=== PATIENT | female | born 1980 | race Caucasian/White ===

== ENCOUNTER 2023-10-27 08:40 | Outpatient (AMB) | payer MEDICARE, MEDICAID, SELFPAY ==
[2023-10-27 08:43] VITALS: BP 106/68; PULSE 76; O2SAT 99; BMI 30.7
--- NOTE | 2023-10-27 08:43 | A.OFFPC_ITS ---
Vital Signs 10/27/23 08:43 Height 5 ft 0.5 in Weight 160 lb BMI 30.7 BP 106/68 Blood Pressure Location Rt brachial Position Sitting Pulse 76 Pulse Source Pulse Oximeter Pulse Oximetry (%) 99 Oxygen Delivery Method Room Air Intake Visit Reasons: Annual Physical Intake Note: Pt is here today for a PE. Allergies pravastatin Adverse Reaction (Intermediate, Verified 10/27/23 08:50) leg cramps paroxetine [Paxil] Adverse Reaction (Unknown, Verified 10/27/23 08:50) anxiety Medication List - Last Reconciled 10/27/23 by Raysa Stuart MD cholecalciferol (vitamin D3) 25 mcg PO DAILY rosuvastatin 5 mg PO .3 times a week sertraline 200 mg (2 x 100 mg) PO DAILY Tobacco use date assessed: 10/27/23 Dental Screening Dental Screen Date: 10/27/23 Did you have a dental visit in the last 12 months?: Yes Did you have a dental problem in the last 6 months where you did not have access to dental care?: No Was dental information given to patient?: Patient has dentist HPI Annual Physical HPI Details Pt presents for PE. ON LICENSE OF [facility] Medical History Family history of Russo syndrome Hyperlipidemia Depression Autism Vitamin D deficiency Annual physical exam Frequent urination Surgical History Hx of tonsillectomy Family History Father No problems noted. Mother No problems noted. Social History Housing: Apartment Alcohol intake: never Patient Tobacco Use Status: Never used Tobacco e-Cigarette/Vaping Use: Never Used service: No Current occupational status: disabled Cognitive needs: No Hearing needs: No Vision needs: Yes Female Reproductive History Menstrual Age of Menarche: 16 Questionnaire Thrive Questionnaire Date Thrive assessed: 09/06/21 AUDIT C Alcohol Use Questionnaire (AUDIT-C) 1. How often do you have a drink containing alcohol?: Never 3. How often do you have six or more drinks on one occasion?: Never Total Score: 0 ALEX-7 AMB Questionnaire ALEX-7 Date ALEX - 7 assessed: 09/06/21 Source: Developed by Drs. Oscar Walker, Ingrid Mcpherson, Arnold Ramey and colleagues, with an educational hallie from [employer]. Review of Systems Const All systems reviewed & are unremarkable except as noted in HPI and below Reports no additional complaints Eyes Reports no additional complaints ENT Reports no additional complaints Card Reports no additional complaints Resp Reports no additional complaints GI Reports no additional complaints Reports no additional complaints Musc Reports no additional complaints Physical exam (Primary Care) Vital Signs: Last Vital Signs Pulse 76 10/27/23 08:43 BP 106/68 10/27/23 08:43 Pulse Ox 99 10/27/23 08:43 Oxygen Delivery Method Room Air 10/27/23 08:43 BMI result Body Mass Index 30.7 Tobacco/Smoking Status: Tobacco use Status Tobacco use date assessed 10/27/23 10/27/23 08:53 Patient Tobacco Use Status Never used Tobacco 10/27/23 08:53 e-Cigarette/Vaping Use Never Used 10/27/23 08:43 Thrive Assessment: Date of Thrive Assessment Date Thrive assessed 09/06/21 10/27/23 08:43 Const General: no acute distress HENMT Head: Yes normal to inspection Ears: hearing grossly normal bilaterally General nose exam: Normal external nose present Face and sinus: Yes normal facial exam Mouth: Normal oral and palatal mucosa present Throat: Yes posterior oropharynx normal Eyes General: appearance normal, both eyes and all related structures Neck Neck: Yes no lymphadenopathy and Yes supple Resp Effort & Inspection: normal respiratory effort Auscultation: clear to auscultation bilaterally Cardio Rhythm: regular rhythm Heart sounds: S1 normal heart sound present and S2 normal heart sound present GI Inspection: Yes normal to inspection Palpation (GI): Soft to palpation Percussion: Yes normal to percussion Auscultation: normal bowel sounds Assessment and Plan Assessment & Plan (1) Annual physical exam: Code(s): Z00.00 - Encounter for general adult medical examination without abnormal findings Plan: Well-balanced diet regular physical activity discussed with the patient. She is up-to-date with mammogram. Patient refused electro mechanical technician exam and colonoscopy (2) Hyperlipidemia: Code(s): E78.5 - Hyperlipidemia, unspecified Plan: Check Crestor to twice a day week. (3) Vitamin D deficiency: Code(s): E55.9 - Vitamin D deficiency, unspecified Plan: Continue vitamin-D supplement (4) Colonoscopy refused: Comment: 11/02, FIT ordered Code(s): Z53.20 - Procedure and treatment not carried out because of patient's decision for unspecified reasons Orders: Orders AMB Fecal Immunochemical Test Today Z12.11 - Encounter for screening for malignant neoplasm of colon, Z12.12 - Encounter for screening for malignant neoplasm of rectum Lipid Panel 1 Year E55.9 - Vitamin D deficiency, unspecified, E78.5 - Hyperlipidemia, unspecified, Z00.00 - Encounter for general adult medical examination without abnormal findings Comprehensive [place]. Panel Fast 1 Year E55.9 - Vitamin D deficiency, unspecified, E78.5 - Hyperlipidemia, unspecified, Z00.00 - Encounter for general adult medical examination without abnormal findings Complete Blood Count Auto Diff 1 Year E55.9 - Vitamin D deficiency, unspecified, E78.5 - Hyperlipidemia, unspecified, Z00.00 - Encounter for general adult medical examination without abnormal findings TSH reflex Free T4 1 Year E55.9 - Vitamin D deficiency, unspecified, E78.5 - Hyperlipidemia, unspecified, Z00.00 - Encounter for general adult medical examination without abnormal findings Vitamin D 25-OH Total 1 Year E55.9 - Vitamin D deficiency, unspecified, E78.5 - Hyperlipidemia, unspecified, Z00.00 - Encounter for general adult medical examination without abnormal findings Medications: Changed From rosuvastatin 5 mg PO .3 times a week 39 tabs 3RF To rosuvastatin 5 mg PO .2 a week 24 tabs 3RF Coding Level of Care Code Est Pt Prev Care 40-64y(14773) Diagnoses Annual physical exam Z00.00 Hyperlipidemia E78.5 Vitamin D deficiency E55.9 Colonoscopy refused Z53.20
== END 2023-10-27 09:41 | disposition home or self-care (01) ==
PROVIDERS: Visit Provider Internal Medicine
DX: Z00.00 Encounter for general adult medical examination without abnormal findings (principal); E78.5 Hyperlipidemia, unspecified; E55.9 Vitamin D deficiency, unspecified; Z53.20 Procedure and treatment not carried out because of patient's decision for unspecified reasons
CPT/HCPCS: 99396

== ENCOUNTER 2024-07-22 15:01 | Outpatient (REF) | payer MEDICARE, MEDICAID, SELFPAY | END 2024-07-22 15:02 | disposition home or self-care (01) | LOC: HO.US 15:01 | PROVIDERS: PCP Internal Medicine; Visit Provider Internal Medicine | DX: N95.0 Postmenopausal bleeding (principal) | CPT/HCPCS: 76830; 76856 ==

== ENCOUNTER → 2024-07-22 15:03 | Outpatient (BNV) | payer MEDICARE, MEDICAID, SELFPAY | PROVIDERS: PCP Internal Medicine; Visit Provider Radiology Diagnostic Radiology | DX: N95.0 Postmenopausal bleeding (principal) | CPT/HCPCS: 76830; 76856 ==

== ENCOUNTER 2024-07-24 13:45 | Outpatient (AMB) | payer MEDICARE, MEDICAID, SELFPAY ==
[2024-07-24 13:46] VITALS: BP 126/70; PULSE 100; RESP 18; TEMP 36.2; O2SAT 97; BMI 30.3
--- NOTE | 2024-07-24 13:46 | MHC.PC.OV ---
Vital Signs 07/24/24 13:46 Height 5 ft 0.5 in Weight 158 lb BMI 30.3 BP 126/70 Blood Pressure Location Rt brachial Position Sitting Respiration 18 Pulse 100 Pulse Source Pulse Oximeter Temp 97.2 F Temp Source Oral Pulse Oximetry (%) 97 Oxygen Delivery Method Room Air Intake Visit Reasons: Pap Intake Note: Pt is here today for a pap. Allergies pravastatin Adverse Reaction (Intermediate, Verified 07/24/24 13:46) leg cramps paroxetine [Paxil] Adverse Reaction (Unknown, Verified 07/24/24 13:46) anxiety Tobacco use date assessed: 07/24/24 Dental Screening Dental Screen Date: 07/24/24 Did you have a dental visit in the last 12 months?: Yes Did you have a dental problem in the last 6 months where you did not have access to dental care?: No Was dental information given to patient?: Patient has dentist HPI Pap HPI Details Patient presents for a follow-up. She has not had a period for 3 years and started having regular menses every 28 days in the last 3 months. Patient denies abdominal pain nausea vomiting excessive bleeding or spotting between. She has never been sexually active and never had Pap smear. Transabdominal Pelvic ultrasound showed normal uterus, normal endometrium, ovaries were not visualized. Patient did not tolerate transvaginal pelvic ultrasound. Patient has been taking sertraline for chronic anxiety and rosuvastatin for hyperlipidemia. [facility] Medical History Family history of Russo syndrome Hyperlipidemia Depression Autism Vitamin D deficiency Annual physical exam Frequent urination Surgical History Hx of tonsillectomy Family History Father No problems noted. Mother No problems noted. Social History Housing: Apartment Alcohol intake: never Patient Tobacco Use Status: Never used Tobacco e-Cigarette/Vaping Use: Never Used service: No Current occupational status: disabled Cognitive needs: No Hearing needs: No Vision needs: Yes Female Reproductive History Menstrual Age of Menarche: 16 Questionnaire PHQ-9 Over the last 2 weeks, how often have you been bothered by any of the following problems? 1. Little interest or pleasure in doing things: not at all 2. Feeling down, depressed, or hopeless: not at all 3. Trouble falling or staying asleep, or sleeping too much: not at all 4. Feeling tired or having little energy: not at all 5. Poor appetite or overeating: not at all 6. Feeling bad about yourself - or that you are a failure or have let yourself or your family down: not at all 7. Trouble concentrating on things, such as reading the newspaper or watching television: not at all 8. Moving or speaking so slowly that other people could have noticed. Or the opposite - being so fidgety or restless that you have been moving around a lot more than usual: not at all 9. Thoughts that you would be better off or of hurting yourself in some way: not at all Total score: 0 Depression Screening Interpretation: Negative Depression Screening Done: Yes 72818 - PHQ-9 Billing: Yes Source: Developed by Drs. Oscar Walker, Ingrid Mcpherson, Arnold Ramey and colleagues, with an educational hallie from [employer]. Thrive Questionnaire Date Thrive assessed: 07/24/24 I am a: Patient What is your living situation today?: I have a steady place to live Within the past 12 months, did the food you bought not last and you didn't have the money to get more?: Never true Within the past 12 months, did you worry whether your food would run out before you got money to buy more?: Never true Do you have trouble paying for medicines?: No Do you have trouble getting transportation to medical appointments?: No Do you have trouble paying your heating and electricity bill?: No Do you have trouble taking care of your child, family member or friend?: No Do you have trouble with day-to-day activities such as bathing, preparing meals, shopping, managing finances, etc.?: No Are you currently unemployed and looking for a job?: No Are you interested in more education?: No Please select the resources that you would like help with: None THRIVE Score: 0 AUDIT C Alcohol Use Questionnaire (AUDIT-C) 1. How often do you have a drink containing alcohol?: Never 3. How often do you have six or more drinks on one occasion?: Never Total Score: 0 ALEX-7 AMB Questionnaire ALEX-7 Date ALEX - 7 assessed: 07/24/24 Feeling nervous, anxious, or on edge: 0 = Not at all Not being able to stop or control worryin = Not at all Worrying too much about different things: 0 = Not at all Trouble relaxin = Not at all Being so restless that it is hard to sit still: 0 = Not at all Becoming easily annoyed or irritable: 0 = Not at all Feeling afraid as if something awful might happen: 0 = Not at all Total ALEX-7 score (0-4 normal; 5-9 mild; 10-14 moderate; 15-21 severe): 0 Source: Developed by Drs. Oscar Walker, Ingrid Mcpherson, Arnold Ramey and colleagues, with an educational hallie from [employer]. ALEX-7 Assessment Billing ALEX-7 Assessment Tool: ALEX-7 Assessment 20583 Review of Systems Const All systems reviewed & are unremarkable except as noted in HPI and below Eyes Reports no additional complaints ENT Reports no additional complaints Card Reports no additional complaints Resp Reports no additional complaints GI Reports no additional complaints Reports no additional complaints Physical exam (Primary Care) Vital Signs: Last Vital Signs Temp 97.2 F 07/24/24 13:46 Pulse 100 07/24/24 13:46 Resp 18 07/24/24 13:46 BP 126/70 07/24/24 13:46 Pulse Ox 97 07/24/24 13:46 Oxygen Delivery Method Room Air 07/24/24 13:46 BMI result Body Mass Index 30.3 Tobacco/Smoking Status: Tobacco use Status Tobacco use date assessed 07/24/24 07/24/24 13:49 Patient Tobacco Use Status Never used Tobacco 07/24/24 13:49 e-Cigarette/Vaping Use Never Used 07/24/24 13:49 PHQ-9: PHQ-9 Score PHQ-9: Total score 0 07/24/24 13:49 Depression Screening Interpretation: Negative Thrive Assessment: Date of Thrive Assessment Date Thrive assessed 07/24/24 07/24/24 13:49 Const General: no acute distress Eyes General: appearance normal, both eyes and all related structures Neck Neck: Yes supple Resp Effort & Inspection: normal respiratory effort Auscultation: clear to auscultation bilaterally Cardio Rhythm: regular rhythm Heart sounds: S1 normal heart sound present and S2 normal heart sound present GI Inspection: Yes normal to inspection Palpation (GI): Soft to palpation Percussion: Yes normal to percussion Auscultation: normal bowel sounds Other: Patient did not tolerate opening of speculum External Female Exam: normal external appearance Speculum Exam - Vagina: normal appearance of the vagina, No vaginal bleeding and nontender OB/external & speculum: No vaginal bleeding Coding Level of Care Code Est Pt Level 3 (48445) Diagnoses Postmenopausal bleeding N95.0 Additional Codes ALEX-7 Assessment Billing - ALEX-7 Assessment Tool: ALEX-7 Assessment 99237 ([id number]) PHQ-9 - 11334 - PHQ-9 Billing: Yes ([id number]) Assessment & Plan Assessment & Plan (1) Postmenopausal bleeding: Comment: Normal pelvic ultrasound, patient did not tolerate speculum exam Code(s): N95.0 - Postmenopausal bleeding Category: Medical Plan: will monitor for any excessive or irregular menses and refer to games dealer
== END 2024-07-24 14:40 | disposition home or self-care (01) ==
PROVIDERS: PCP Internal Medicine; Visit Provider Internal Medicine
DX: N95.0 Postmenopausal bleeding (principal)

== ENCOUNTER → 2024-07-24 13:45 | Outpatient (BNVA) | payer MEDICARE, MEDICAID, SELFPAY | PROVIDERS: PCP Internal Medicine; Visit Provider Internal Medicine | DX: N95.0 Postmenopausal bleeding (principal) | CPT/HCPCS: 96127; 99212 ==

== ENCOUNTER 2024-11-01 10:03 | Outpatient (AMB) | payer MEDICARE, MEDICAID, SELFPAY ==
[2024-11-01 10:41] VITALS: BP 110/64; PULSE 70; RESP 22; TEMP 36.9; O2SAT 97; BMI 29.8
--- NOTE | 2024-11-01 10:41 | MHC.PC.OV ---
Vital Signs 11/01/24 10:41 Height 5 ft 0.5 in Weight 155 lb BMI 29.8 BP 110/64 Blood Pressure Location Rt brachial Position Sitting Respiration 22 H Pulse 70 Pulse Source Pulse Oximeter Temp 98.5 F Temp Source Oral Pulse Oximetry (%) 97 Oxygen Delivery Method Room Air Intake Visit Reasons: PE Intake Note: Pt is here today for her PE Allergies pravastatin Adverse Reaction (Intermediate, Verified 11/01/24 10:51) leg cramps paroxetine [Paxil] Adverse Reaction (Unknown, Verified 11/01/24 10:51) anxiety Medication List - Last Reconciled 11/01/24 by Raysa Stuart MD cholecalciferol (vitamin D3) 25 mcg PO DAILY lorazepam 1 mg PO ONCE rosuvastatin 5 mg PO .2 a week sertraline 200 mg (2 x 100 mg) PO DAILY Tobacco use date assessed: 11/01/24 Dental Screening Dental Screen Date: 11/01/24 Did you have a dental visit in the last 12 months?: Yes Did you have a dental problem in the last 6 months where you did not have access to dental care?: No Was dental information given to patient?: Patient has dentist HPI PE HPI Details Patient presents for physical. She complains of excessive sweating since increasing the dose of sertraline. [facility] Medical History (Updated 11/01/24 @ 19:12 by Raysa Stuart MD) Family history of Russo syndrome Hyperlipidemia Depression Autism Vitamin D deficiency Annual physical exam Frequent urination Surgical History Hx of tonsillectomy Family History Father No problems noted. Mother No problems noted. Social History Housing: Apartment Alcohol intake: never Patient Tobacco Use Status: Never used Tobacco e-Cigarette/Vaping Use: Never Used service: No Current occupational status: disabled Cognitive needs: No Hearing needs: No Vision needs: Yes Female Reproductive History Menstrual Age of Menarche: 16 Questionnaire Thrive Questionnaire Date Thrive assessed: 07/17/24 I am a: Patient What is your living situation today?: I have a steady place to live Within the past 12 months, did the food you bought not last and you didn't have the money to get more?: Never true Within the past 12 months, did you worry whether your food would run out before you got money to buy more?: Never true Do you have trouble paying for medicines?: No Do you have trouble getting transportation to medical appointments?: No Do you have trouble paying your heating and electricity bill?: No Do you have trouble taking care of your child, family member or friend?: No Do you have trouble with day-to-day activities such as bathing, preparing meals, shopping, managing finances, etc.?: No Are you currently unemployed and looking for a job?: No Are you interested in more education?: No Please select the resources that you would like help with: None Currently or been in a relationship where the following occur: No concerns reported THRIVE Score: 0 AUDIT C Alcohol Use Questionnaire (AUDIT-C) 3. How often do you have six or more drinks on one occasion?: Never Total Score: 0 ALEX-7 AMB Questionnaire ALEX-7 Date ALEX - 7 assessed: 07/24/24 Not being able to stop or control worryin = More than half the days Worrying too much about different things: 2 = More than half the days Trouble relaxin = Not at all Being so restless that it is hard to sit still: 0 = Not at all Becoming easily annoyed or irritable: 2 = More than half the days Feeling afraid as if something awful might happen: 0 = Not at all Source: Developed by Drs. Oscar Walker, Ingrid Mcpherson, Arnold Ramey and colleagues, with an educational hallie from [employer]. Review of Systems Const All systems reviewed & are unremarkable except as noted in HPI and below Eyes Reports no additional complaints ENT Reports no additional complaints Card Reports no additional complaints Resp Reports no additional complaints GI Reports no additional complaints Reports no additional complaints Physical exam (Primary Care) Vital Signs: Last Vital Signs Temp 98.5 F 11/01/24 10:41 Pulse 70 11/01/24 10:41 Resp 22 H 11/01/24 10:41 BP 110/64 11/01/24 10:41 Pulse Ox 97 11/01/24 10:41 Oxygen Delivery Method Room Air 11/01/24 10:41 BMI result Body Mass Index 29.8 Tobacco/Smoking Status: Tobacco use Status Tobacco use date assessed 11/01/24 11/01/24 10:52 Patient Tobacco Use Status Never used Tobacco 11/01/24 10:42 e-Cigarette/Vaping Use Never Used 11/01/24 10:42 Thrive Assessment: Date of Thrive Assessment Date Thrive assessed 07/17/24 11/01/24 10:42 Currently or been in a relationship where the following occur: No concerns reported Const General: no acute distress HENMT Head: Yes normal to inspection Eyes General: appearance normal, both eyes and all related structures Neck Neck: Yes no lymphadenopathy and Yes supple Resp Effort & Inspection: normal respiratory effort Auscultation: clear to auscultation bilaterally Cardio Rhythm: regular rhythm Heart sounds: S1 normal heart sound present and S2 normal heart sound present GI Inspection: Yes normal to inspection Palpation (GI): Soft to palpation Percussion: Yes normal to percussion Auscultation: normal bowel sounds Coding Level of Care Code Est Pt Prev Care 40-64y(16940) Diagnoses Annual physical exam Z00.00 Vitamin D deficiency E55.9 Hyperlipidemia E78.5 Depression F32.9 Assessment & Plan Assessment & Plan (1) Annual physical exam: Code(s): Z00.00 - Encounter for general adult medical examination without abnormal findings Category: Medical Plan: Well-balanced diet regular physical activity discussed with the patient. She has an appointment with fabric sourcer next month (2) Vitamin D deficiency: Code(s): E55.9 - Vitamin D deficiency, unspecified Category: Medical Plan: Continue vitamin-D supplement (3) Hyperlipidemia: Code(s): E78.5 - Hyperlipidemia, unspecified Category: Medical Plan: Continue Crestor (4) Depression: Code(s): F32.9 - Major depressive disorder, single episode, unspecified Category: Medical Plan: Patient will taper down the dose by 25 mg every 1-2 weeks to 100 mg because of excessive sweating. Follow-up in 2 months Orders: Orders Comprehensive [place]. Panel Fast 1 Year E55.9 - Vitamin D deficiency, unspecified, E78.5 - Hyperlipidemia, unspecified, Z00.00 - Encounter for general adult medical examination without abnormal findings TSH reflex Free T4 1 Year E55.9 - Vitamin D deficiency, unspecified, E78.5 - Hyperlipidemia, unspecified, Z00.00 - Encounter for general adult medical examination without abnormal findings Lipid Panel 1 Year E55.9 - Vitamin D deficiency, unspecified, E78.5 - Hyperlipidemia, unspecified, Z00.00 - Encounter for general adult medical examination without abnormal findings Complete Blood Count Auto Diff 1 Year E55.9 - Vitamin D deficiency, unspecified, E78.5 - Hyperlipidemia, unspecified, Z00.00 - Encounter for general adult medical examination without abnormal findings Vitamin D 25-OH Total 1 Year E55.9 - Vitamin D deficiency, unspecified, E78.5 - Hyperlipidemia, unspecified, Z00.00 - Encounter for general adult medical examination without abnormal findings Medications: New sertraline take with 100 mg as per taper direction 25 mg PO DAILY 60 tabs 0RF
== END 2024-11-01 11:44 | disposition home or self-care (01) ==
LOC: HO.HMCC 10:04
PROVIDERS: PCP Internal Medicine; Visit Provider Internal Medicine
DX: Z00.00 Encounter for general adult medical examination without abnormal findings (principal); E55.9 Vitamin D deficiency, unspecified; E78.5 Hyperlipidemia, unspecified; F32.9 Major depressive disorder, single episode, unspecified

== ENCOUNTER → 2024-11-01 10:03 | Outpatient (BNVA) | payer MEDICARE, MEDICAID, SELFPAY | PROVIDERS: PCP Internal Medicine; Visit Provider Internal Medicine | DX: Z00.00 Encounter for general adult medical examination without abnormal findings (principal); E55.9 Vitamin D deficiency, unspecified; E78.5 Hyperlipidemia, unspecified; F32.9 Major depressive disorder, single episode, unspecified | CPT/HCPCS: 99396 ==

== ENCOUNTER 2025-01-03 10:38 | Outpatient (AMB) | payer MEDICARE, MEDICAID, SELFPAY ==
[2025-01-03 10:41] VITALS: BP 126/84; PULSE 72; RESP 18; TEMP 33.4; O2SAT 96
--- NOTE | 2025-01-03 10:41 | MHC.PC.OV ---
Vital Signs 01/03/25 10:41 Height 5 ft 0.5 in Weight 156 lb BMI 30.0 BP 126/84 Blood Pressure Location Lt brachial Position Sitting Respiration 18 Pulse 72 Pulse Source Pulse Oximeter Temp 92.2 F L Temp Source Oral Pulse Oximetry (%) 96 Oxygen Delivery Method Room Air Intake Visit Reasons: 2m f/u Medical Observer Required: No Allergies pravastatin Adverse Reaction (Intermediate, Verified 11/01/24 10:51) leg cramps paroxetine (Paxil) Adverse Reaction (Unknown, Verified 11/01/24 10:51) anxiety Medication List - Last Reconciled 01/03/25 by Raysa Stuart MD cholecalciferol (vitamin D3) 25 mcg PO DAILY lorazepam 1 mg PO ONCE rosuvastatin 5 mg PO .2 a week sertraline 200 mg (2 x 100 mg) PO DAILY sertraline 25 mg PO DAILY Tobacco use date assessed: 11/01/24 Dental Screening Dental Screen Date: 11/01/24 Did you have a dental visit in the last 12 months?: Yes Did you have a dental problem in the last 6 months where you did not have access to dental care?: No Was dental information given to patient?: Patient has dentist HPI 2m f/u HPI Details Patient presents for the follow-up of tapering sertraline dose to 100mg. Patient is feeling well. Excessive sweating resolved. [facility] Medical History Family history of Russo syndrome Hyperlipidemia Depression Autism Vitamin D deficiency Annual physical exam Frequent urination Surgical History Hx of tonsillectomy Family History Father No problems noted. Mother No problems noted. Social History Housing: Apartment Alcohol intake: never Patient Tobacco Use Status: Never used Tobacco e-Cigarette/Vaping Use: Never Used service: No Current occupational status: disabled Cognitive needs: No Hearing needs: No Vision needs: Yes Female Reproductive History Menstrual Age of Menarche: 16 Questionnaire PHQ-9 Over the last 2 weeks, how often have you been bothered by any of the following problems? 1. Little interest or pleasure in doing things: not at all 2. Feeling down, depressed, or hopeless: not at all 3. Trouble falling or staying asleep, or sleeping too much: not at all 4. Feeling tired or having little energy: not at all 5. Poor appetite or overeating: not at all 6. Feeling bad about yourself - or that you are a failure or have let yourself or your family down: not at all 7. Trouble concentrating on things, such as reading the newspaper or watching television: not at all 8. Moving or speaking so slowly that other people could have noticed. Or the opposite - being so fidgety or restless that you have been moving around a lot more than usual: not at all 9. Thoughts that you would be better off or of hurting yourself in some way: not at all Total score: 0 Depression Screening Interpretation: Negative Depression Screening Done: Yes 08136 - PHQ-9 Billing: Yes Source: Developed by Drs. Oscar Walker, Ingrid Mcpherson, Arnold Ramey and colleagues, with an educational hallie from [employer]. Thrive Questionnaire Date Thrive assessed: 07/17/24 I am a: Patient What is your living situation today?: I have a steady place to live Within the past 12 months, did the food you bought not last and you didn't have the money to get more?: Never true Within the past 12 months, did you worry whether your food would run out before you got money to buy more?: Never true Do you have trouble paying for medicines?: No Do you have trouble getting transportation to medical appointments?: No Do you have trouble paying your heating and electricity bill?: No Do you have trouble taking care of your child, family member or friend?: No Do you have trouble with day-to-day activities such as bathing, preparing meals, shopping, managing finances, etc.?: No Are you currently unemployed and looking for a job?: No Are you interested in more education?: No Please select the resources that you would like help with: None Currently or been in a relationship where the following occur: No concerns reported THRIVE Score: 0 ALEX-7 AMB Questionnaire ALEX-7 Date ALEX - 7 assessed: 07/24/24 Not being able to stop or control worryin = More than half the days Worrying too much about different things: 2 = More than half the days Trouble relaxin = Not at all Being so restless that it is hard to sit still: 0 = Not at all Becoming easily annoyed or irritable: 2 = More than half the days Feeling afraid as if something awful might happen: 0 = Not at all Source: Developed by Drs. Oscar Walker, Ingrid Mcpherson, Arnold Ramey and colleagues, with an educational hallie from [employer]. ALEX-7 Assessment Billing ALEX-7 Assessment Tool: ALEX-7 Assessment 54888 Review of Systems Const All systems reviewed & are unremarkable except as noted in HPI and below Eyes Reports no additional complaints ENT Reports no additional complaints Card Reports no additional complaints Resp Reports no additional complaints GI Reports no additional complaints Reports no additional complaints Physical exam (Primary Care) Vital Signs: Last Vital Signs Temp 92.2 F L 01/03/25 10:41 Pulse 72 01/03/25 10:41 Resp 18 01/03/25 10:41 BP 126/84 01/03/25 10:41 Pulse Ox 96 01/03/25 10:41 Oxygen Delivery Method Room Air 01/03/25 10:41 BMI result Body Mass Index 30.0 Tobacco/Smoking Status: Tobacco use Status Tobacco use date assessed 11/01/24 01/03/25 10:44 Patient Tobacco Use Status Never used Tobacco 01/03/25 10:44 e-Cigarette/Vaping Use Never Used 01/03/25 10:44 PHQ-9: PHQ-9 Score PHQ-9: Total score 0 01/03/25 11:13 Depression Screening Interpretation: Negative Thrive Assessment: Date of Thrive Assessment Date Thrive assessed 07/17/24 01/03/25 10:44 Currently or been in a relationship where the following occur: No concerns reported Const General: no acute distress HENMT Head: Yes normal to inspection Resp Effort & Inspection: normal respiratory effort Auscultation: clear to auscultation bilaterally Cardio Rhythm: regular rhythm Heart sounds: S1 normal heart sound present and S2 normal heart sound present Coding Level of Care Code Est Pt Level 3 (54789) Diagnoses Depression F32.9 Additional Codes ALEX-7 Assessment Billing - ALEX-7 Assessment Tool: ALEX-7 Assessment 12553 ([id number]) PHQ-9 - 67695 - PHQ-9 Billing: Yes ([id number]) Assessment & Plan Assessment & Plan (1) Depression: Code(s): F32.9 - Major depressive disorder, single episode, unspecified Category: Medical Plan: Continue 100 mg of sertraline. Regular physical activity and social engagement discussed with the patient and her daughter Medications: Changed From sertraline 200 mg (2 x 100 mg) PO DAILY 180 tabs 3RF To sertraline 100 mg PO DAILY 90 tabs 3RF Discontinued sertraline take with 100 mg as per taper direction Discontinued Reason: Doctor's Order 25 mg PO DAILY 90 tabs 0RF
== END 2025-01-03 12:42 | disposition home or self-care (01) ==
LOC: HO.HMCC 10:38
PROVIDERS: PCP Internal Medicine; Visit Provider Internal Medicine
DX: F32.9 Major depressive disorder, single episode, unspecified (principal)

== ENCOUNTER → 2025-01-03 10:38 | Outpatient (BNVA) | payer MEDICARE, MEDICAID, SELFPAY | PROVIDERS: PCP Internal Medicine; Visit Provider Internal Medicine | DX: F32.9 Major depressive disorder, single episode, unspecified (principal) | CPT/HCPCS: 96127; 99212 ==